=== PATIENT | male | born 1990 | race African-American/Black ===

== ENCOUNTER 2018-04-22 00:47 | Emergency (ER) | payer SELFPAY ==
[2018-04-22] MEDS ORDERED: Ketorolac Tromethamine 30 MG/ML VIAL ONE (01:55)
--- NOTE | 2018-04-22 07:51 | RAD ---
LEFT ANKLE 3 VIEWS: HISTORY: Injury, left ankle pain. FINDINGS: The ankle mortise is maintained. No acute fracture or dislocation is seen. POS: [facility]
== END 2018-04-22 03:04 | disposition home or self-care (01) ==
LOC: ERS 00:47
DX: S93.402A Sprain of unspecified ligament of left ankle, initial encounter (principal); F17.210 Nicotine dependence, cigarettes, uncomplicated; W21.9XXA Striking against or struck by unspecified sports equipment, initial encounter
CPT/HCPCS: 96372; J1885

== ENCOUNTER 2019-03-14 08:13 | Emergency (ER) | payer SELFPAY | END 2019-03-14 09:47 | disposition home or self-care (01) | LOC: ERS 08:13 | DX: M62.838 Other muscle spasm (principal); F17.210 Nicotine dependence, cigarettes, uncomplicated | CPT/HCPCS: 99283 ==

== ENCOUNTER 2019-10-05 10:20 | Emergency (ER) | payer SELFPAY ==
[2019-10-05] MEDS ORDERED: Acetaminophen 500 MG TAB ONE (10:58)
[2019-10-05] MEDS ORDERED: Ketorolac Tromethamine 30 MG/ML VIAL ONE (10:58)
== END 2019-10-05 11:04 | disposition home or self-care (01) ==
LOC: ERS 10:20
DX: K02.9 Dental caries, unspecified (principal); I10 Essential (primary) hypertension; F17.210 Nicotine dependence, cigarettes, uncomplicated
CPT/HCPCS: 96372; 99282; J1885

== ENCOUNTER 2020-06-26 07:59 | Emergency (ER) | payer SELFPAY ==
[2020-06-26] MEDS ORDERED: Ketorolac Tromethamine 30 MG/ML VIAL ONE (09:49)
[2020-06-26] MEDS ORDERED: Diazepam 5 MG TAB ONE (09:49)
== END 2020-06-26 10:08 | disposition home or self-care (01) ==
LOC: ERS 07:59
DX: M62.838 Other muscle spasm (principal); F17.210 Nicotine dependence, cigarettes, uncomplicated
CPT/HCPCS: 96372; J1885

== ENCOUNTER 2020-11-21 10:51 | Emergency (ER) | payer BC ==
[2020-11-21] MEDS ORDERED: Acetaminophen 500 MG TAB ONE (11:11)
[2020-11-21] MEDS ORDERED: Ketorolac Tromethamine 30 MG/ML VIAL ONE (11:11)
== END 2020-11-21 11:40 | disposition home or self-care (01) ==
LOC: ERS 10:51
DX: K02.9 Dental caries, unspecified (principal); F17.210 Nicotine dependence, cigarettes, uncomplicated
CPT/HCPCS: 96372; 99282; J1885

== ENCOUNTER 2021-03-24 08:30 | Emergency (ER) | payer BC | END 2021-03-24 10:00 | disposition left against medical advice (07) | LOC: ERS 08:30 | DX: Z53.21 Procedure and treatment not carried out due to patient leaving prior to being seen by health care provider (principal) ==

== ENCOUNTER 2023-03-03 11:51 | Emergency (ER) | payer SELFPAY ==
[2023-03-03 12:26] LABS: #Monocytes 0.6 thou/uL (0.11-0.59); #Neutrophils 5.5 thou/uL (1.40-6.50); %Basophils 0.4 % (0.0-1.0); %Eosinophils 0.5 % (0.0-10.0); %Lymphocytes 16.4 % (21.0-51.0); %Monocytes 8.4 % (0.0-10.0); Hemoglobin 15.8 g/dL (14.0-18.0); Mean Corpuscular HGB CONC 33.6 g/dL (32.0-36.0); Mean Corpuscular Hemoglobin 30.6 pg (27.0-31.0); Mean Corpuscular Volume 91.1 fl (78.0-98.0); Mean Platelet Volume 10.1 fL (7.4-10.4); Platelet Count 328 10x3/uL (130-400); RBC Distribution Width 12.5 % (11.5-14.5); Red Blood Cell (RBC) Count 5.16 mill/uL (4.70-6.10); White Blood Cell (WBC) Count 7.4 10x3/uL (4.8-10.8)
[2023-03-03 12:49] LABS: ALT (SGPT) 16 U/L (8-55); AST (SGOT) 19 U/L (5-34); Albumin 4.3 g/dL (3.5-5.0); Alkaline Phosphatase 71 U/L (40-110); Anion Gap 15 mmol/L (10-20); BUN (Urea Nitrogen) 15 mg/dL (8.9-20.6); Bilirubin, Total 0.6 mg/dL (0.2-1.2); Calc. Creatinine Clearance 0 mL/min (70-130); Calcium 9.7 mg/dL (7.8-10.44); Carbon Dioxide 22 mmol/L (22-29); Chloride 105 mmol/L (98-107); Estimated GFR 100; Globulin 3.8 g/dL (2.4-3.5); Glucose 94 mg/dL (70-105); Lipase 27 U/L (8-78); Potassium 3.9 mmol/L (3.5-5.1); Protein, Total 8.1 g/dL (6.0-8.3); Sodium 138 mmol/L (136-145)
[2023-03-03 12:52] LABS: Bacteria/HPF None Seen HPF (None Seen); Bilirubin Negative (Negative); Blood, Urine Negative (Negative); CAUTI Indications for Culture Pelvic or flank pain; Clarity Turbid (Clear); Glucose, Urine (Dipstick) Normal (Negative); Ketone, Urine 10 mg/dL (Negative); Leukocyte Negative Leu/uL (Negative); Nitrite Negative (Negative); Protein, Urine (Dipstick) 30 mg/dL (Neg-Trace); RBC/HPF 0-3 HPF (0-3); Specific Gravity, Urine 1.033 (1.002-1.036); Squamous Epithelial 0-3 HPF (0-3); WBC/HPF 0-3 HPF (0-3)
[2023-03-03 12:59] LABS: Urine Culture Reflex No No
[2023-03-03 13:01] LABS: SARS-CoV-2 NAA Rapid Test Not Detected (NotDetected)
[2023-03-03] MEDS ORDERED: Dicyclomine 20 MG TAB ONE (13:03)
[2023-03-03] MEDS ORDERED: Ondansetron ODT 4 MG TAB ONE (13:03)
== END 2023-03-03 15:38 | disposition home or self-care (01) ==
LOC: ERS 11:51
DX: K29.70 Gastritis, unspecified, without bleeding (principal); F17.210 Nicotine dependence, cigarettes, uncomplicated
CPT/HCPCS: 36415; 80053; 81001; 83690; 85025; 99284; Q0162